=== PATIENT | female | born 1955 | race Hispanic/Latino ===

== ENCOUNTER → 2017-07-04 | Outpatient (CLI) | payer OTHER ==
[~2017-07-04] MED LIST: DOXY100T2 PO
== END | disposition home or self-care (01) ==
LOC: RAH 11:57
PROVIDERS: ATTEND Nurse Practitioner Family
DX: H81.399 Other peripheral vertigo, unspecified ear (principal); R51 Headache
CPT/HCPCS: 93880

== ENCOUNTER 2021-09-26 12:36 | Observation (INO) | payer OTHER ==
[~2021-09-26] VITALS: Ht 144.8 cm; Wt 56.0 kg
[2021-09-26 13:06] LABS: APPEARANCE,URINE CLEAR (CLEAR); BILIRUBIN,URINE NEGATIVE (NEGATIVE); COLOR,URINE YELLOW (YELLOW); GLUCOSE, URINE (UA) NEGATIVE (NEGATIVE); KETONES,URINE NEGATIVE (NEGATIVE); LEUKOCYTE ESTERASE ,URINE NEGATIVE (NEGATIVE); NITRATE,URINE NEGATIVE (NEGATIVE); OCCULT BLOOD,URINE NEGATIVE (NEGATIVE); PH,URINE 6.5 (5.0-8.0); PROTEIN,URINE NEGATIVE (NEGATIVE); UROBILINOGEN,URINE 0.2 mg/dL (0.2-1.0)
[2021-09-26 13:17] LABS: BASOPHILS % (AUTO) 0.4 % (0.0-5.0); EOSINOPHILS % (AUTO) 0.2 % (0.0-8.0); HEMATOCRIT 41.4 % (36-48); LYMPHOCYTES % (AUTO) 23.2 % (21.0-51.0); MEAN CORPUSCULAR HEMOGLOBIN 28.6 pg (27.0-33.0); MEAN CORPUSCULAR HGB CONC 33.3 g/dL (32.0-36.0); MEAN CORPUSCULAR VOLUME 85.7 fL (79-99); MONOCYTES % (AUTO) 6.4 % (3.0-13.0); NEUTROPHILS % (AUTO) 69.6 % (40.0-77.0); PLATELET COUNT (AUTO) 239 K/uL (130-400); RED BLOOD CELL COUNT(AUTO) 4.83 MIL/uL (4.00-5.50); RED CELL DISTRIBUTION WIDTH 14.4 % (11.0-15.5); WHITE BLOOD COUNT (AUTO) 5.2 K/uL (4.8-10.8)
[2021-09-26 14:19] LABS: ALBUMIN 3.9 g/dL (3.5-5.0); CREATININE 0.7 mg/dL (0.5-1.5); POTASSIUM 3.6 mmol/L (3.5-5.1); TOTAL PROTEIN, SERUM 7.6 g/dL (6.0-8.3)
[2021-09-26] MEDS ORDERED: 0.9%NACL 1000ML 1,000 ML IV ONE (14:30)
[2021-09-26] MEDS ORDERED: ONDANSETRON 4MG INJ IVP ONE (14:30)
[2021-09-26] MEDS ORDERED: MORPHINE 4 MG SYG IVP ONE (14:30)
[2021-09-26] MEDS ORDERED: IOHEXOL 350 MG/ML 100ML INFUS..BTL IV ONE (14:48)
[2021-09-26] MEDS ORDERED: DIATR MEGLU/DIATRIZOATE SODIUM 30 ML BOTTLE ONE (17:57)
[2021-09-26] MEDS ORDERED: MORPHINE 2 MG SYG IV PRN (19:00)
[2021-09-26] MEDS ORDERED: MORPHINE 4 MG SYG IV PRN (19:00)
[2021-09-26] MEDS ORDERED: ACETAMINOPHEN 650 MG SUPPOSITORY RC PRN (19:00)
[2021-09-26] MEDS: LACTATED RINGERS 1000ML 1,000 ML IV SCH (19:00)
[2021-09-26] MEDS: ZOSYN 3.375GM+NS 50ML 50 ML IV SCH (21:50)
[2021-09-26] MEDS: FAMOTIDINE 20MG VIAL IV SCH (21:50)
[2021-09-26 22:30] VITALS: BP 116/55
[2021-09-27 04:00] VITALS: BP 122/57
[2021-09-27] MEDS: LACTATED RINGERS 1000ML 1,000 ML IV SCH (04:58)
[2021-09-27] MEDS: ZOSYN 3.375GM+NS 50ML 50 ML IV SCH (05:40)
[2021-09-27 05:46] LABS: BASOPHILS % (AUTO) 0.5 % (0.0-5.0); EOSINOPHILS % (AUTO) 1.2 % (0.0-8.0); HEMATOCRIT 36.3 % (36-48); LYMPHOCYTES % (AUTO) 35.7 % (21.0-51.0); MEAN CORPUSCULAR HEMOGLOBIN 28.5 pg (27.0-33.0); MEAN CORPUSCULAR HGB CONC 33.3 g/dL (32.0-36.0); MEAN CORPUSCULAR VOLUME 85.4 fL (79-99); MONOCYTES % (AUTO) 10.5 % (3.0-13.0); NEUTROPHILS % (AUTO) 51.9 % (40.0-77.0); PLATELET COUNT (AUTO) 187 K/uL (130-400); RED BLOOD CELL COUNT(AUTO) 4.25 MIL/uL (4.00-5.50); RED CELL DISTRIBUTION WIDTH 14.4 % (11.0-15.5)
[2021-09-27 05:50] LABS: INR 0.98 (0.85-1.15); PROTHROMBIN TIME 10.7 SEC (9.6-11.6)
[2021-09-27 05:51] LABS: PARTIAL THROMBOPLASTIN TIME 28.7 SEC (26.3-35.5)
[2021-09-27 06:12] LABS: CREATININE 0.8 mg/dL (0.5-1.5); MAGNESIUM 2.2 mg/dL (1.80-2.40); PHOSPHORUS 4.6 mg/dL (2.5-4.9); POTASSIUM 3.8 mmol/L (3.5-5.1)
[2021-09-27 07:25] VITALS: BP 110/50
[2021-09-27] MEDS: FAMOTIDINE 20MG VIAL IV SCH (09:34)
[2021-09-27 11:05] VITALS: BP 100/47
[2021-09-27] MEDS ORDERED: LEVO-70 PO (11:50)
[2021-09-27] MEDS ORDERED: METR-172 PO (11:50)
== END 2021-09-27 13:03 | disposition home or self-care (01) ==
LOC: EDH 12:36 → EDHIP 18:46 → INTOOBSV 18:46 → 4DH 22:25
PROVIDERS: ADMIT Internal Medicine; ATTEND Internal Medicine
DX: R10.31 Right lower quadrant pain (principal); K57.90 Diverticulosis of intestine, part unspecified, without perforation or abscess without bleeding; Z90.49 Acquired absence of other specified parts of digestive tract
CPT/HCPCS: 96361 ×2; 96365; 96366 ×2; 96375 ×2; 99285; 84484; 80053; 83690; 85025 ×2; 87040 ×2; 81003; 36415 ×2; 74176; 74177; 93005; 83735; 84100; 80048; 85610; 85730; 86850; 86900; 86901; J7120; Q9963; J3490 ×2; J7030; J2405; J2270; J2543 ×2; Q9967; G0378 ×2

== ENCOUNTER 2022-04-24 03:31 | Emergency (ER) | payer BC, MEDICARE, OTHER ==
[~2022-04-24] VITALS: Ht 147.3 cm; Wt 57.6 kg
[~2022-04-24 03:31] MED LIST changes: -DOXY100T2 PO; +LEVO-70 PO; +METR-172 PO
[2022-04-24 03:54] LABS: APPEARANCE,URINE CLEAR (CLEAR); BILIRUBIN,URINE NEGATIVE (NEGATIVE); COLOR,URINE COLORLESS (YELLOW); GLUCOSE, URINE (UA) NEGATIVE (NEGATIVE); KETONES,URINE NEGATIVE (NEGATIVE); LEUKOCYTE ESTERASE ,URINE NEGATIVE Leu/uL (NEGATIVE); NITRATE,URINE NEGATIVE (NEGATIVE); OCCULT BLOOD,URINE NEGATIVE (NEGATIVE); PROTEIN,URINE NEGATIVE (NEGATIVE); UROBILINOGEN,URINE 0.2 mg/dL (0.2-1.0)
[2022-04-24 03:56] LABS: BASOPHILS % (AUTO) 0.5 % (0.0-5.0); EOSINOPHILS % (AUTO) 2.2 % (0.0-8.0); HEMATOCRIT 41.9 % (36-48); LYMPHOCYTES % (AUTO) 32.3 % (21.0-51.0); MEAN CORPUSCULAR HEMOGLOBIN 28.5 pg (27.0-33.0); MEAN CORPUSCULAR HGB CONC 32.9 g/dL (32.0-36.0); MEAN CORPUSCULAR VOLUME 86.4 fL (79-99); MONOCYTES % (AUTO) 8.1 % (3.0-13.0); NEUTROPHILS % (AUTO) 56.7 % (40.0-77.0); PLATELET COUNT (AUTO) 209 K/uL (130-400); RED BLOOD CELL COUNT(AUTO) 4.85 MIL/uL (4.00-5.50); RED CELL DISTRIBUTION WIDTH 14.6 % (11.0-15.5); WHITE BLOOD COUNT (AUTO) 5.6 K/uL (4.8-10.8)
[2022-04-24 04:06] LABS: CREATININE 0.7 mg/dL (0.5-1.5); POTASSIUM 3.9 mmol/L (3.5-5.1)
[2022-04-24 04:10] LABS: ALBUMIN 3.8 g/dL (3.5-5.0); TOTAL PROTEIN, SERUM 7.2 g/dL (6.0-8.3)
[2022-04-24 05:01] VITALS: BP 125/66
[2022-04-24] MEDS ORDERED: PANTOPRAZOLE 40 MG/VIAL IVP STA (05:59)
[2022-04-24] MEDS ORDERED: PANTOPRAZOLE 40 MG/VIAL ONE (06:01)
[2022-04-24] MEDS ORDERED: PANT40TA55 PO (06:01)
== END 2022-04-24 06:10 | disposition home or self-care (01) ==
LOC: EDH 03:31
DX: K29.70 Gastritis, unspecified, without bleeding (principal); Z79.899 Other long term (current) drug therapy; Z90.49 Acquired absence of other specified parts of digestive tract
CPT/HCPCS: 99284; 96374; 80053; 83690; 85025; 81003; 36415; C9113

== ENCOUNTER 2023-08-12 23:32 | Emergency (ER) | payer MEDICARE ==
[~2023-08-12] VITALS: Ht 144.8 cm; Wt 60.3 kg
[~2023-08-12 23:32] MED LIST changes: +PANT40TA55 PO
[2023-08-12] MEDS: ACETAMINOPHEN 325 MG TAB PO ONE (23:53)
[2023-08-12 23:58] LABS: RAPID GROUP A STREP negative (NEGATIVE)
[2023-08-13 00:02] LABS: SARS-CoV-2, RNA, NAAT NEGATIVE SARS CoV-2 (NEGATIVE)
[2023-08-13 00:07] LABS: INFLUENZA TYPE A Negative For Type A (NEGATIVE); INFLUENZA TYPE B Negative For Type B (NEGATIVE)
[2023-08-13 00:15] LABS: ADD UA MICROSCOPIC YES; APPEARANCE,URINE CLEAR (CLEAR); BILIRUBIN,URINE NEGATIVE (NEGATIVE); COLOR,URINE COLORLESS (YELLOW); GLUCOSE, URINE (UA) NEGATIVE (NEGATIVE); KETONES,URINE NEGATIVE (NEGATIVE); LEUKOCYTE ESTERASE ,URINE NEGATIVE Leu/uL (NEGATIVE); NITRATE,URINE NEGATIVE (NEGATIVE); PH,URINE 6.5 (5.0-8.0); PROTEIN,URINE NEGATIVE (NEGATIVE); UROBILINOGEN,URINE 0.2 mg/dL (0.2-1.0)
[2023-08-13 00:20] LABS: WBC,URINE 0-1 /HPF (0-1)
[2023-08-13 00:21] LABS: BACTERIA,URINE None Seen /HPF (None Seen); MUCUS,URINE Rare LPF (None Seen)
[2023-08-13 00:29] LABS: CREATININE 0.7 mg/dL (0.5-1.0); POTASSIUM 4.8 mmol/L (3.5-5.1)
[2023-08-13 00:33] LABS: ALBUMIN 3.5 g/dL (3.5-5.0); BILIRUBIN,TOTAL 0.3 mg/dL (0.2-1.0); TOTAL PROTEIN, SERUM 7.4 g/dL (6.0-8.3)
[2023-08-13 00:35] LABS: BASOPHILS # (AUTO) 0.03 K/uL (0.00-0.20); BASOPHILS % (AUTO) 0.4 % (0.0-5.0); EOSINOPHILS # (AUTO) 0.02 K/uL (0.00-0.70); EOSINOPHILS % (AUTO) 0.3 % (0.0-8.0); HEMATOCRIT 39.2 % (36-48); IMMATURE GRANULOCYTE ABSOLUTE 0.02 K/uL (0-1); LYMPHOCYTES # (AUTO) 0.7 K/uL (1.0-4.8); MEAN CORPUSCULAR HEMOGLOBIN 28.7 pg (27.0-33.0); MEAN CORPUSCULAR HGB CONC 33.2 g/dL (32.0-36.0); MEAN CORPUSCULAR VOLUME 86.5 fL (79-99); MONOCYTES # (AUTO) 0.6 K/uL (0.1-1.0); MONOCYTES % (AUTO) 8.2 % (3.0-13.0); NEUTROPHILS # (AUTO) 5.4 K/uL (1.8-7.7); NEUTROPHILS % (AUTO) 80.8 % (40.0-77.0); PLATELET COUNT (AUTO) 214 K/uL (130-400); RED BLOOD CELL COUNT(AUTO) 4.53 MIL/uL (4.00-5.50); RED CELL DISTRIBUTION WIDTH 14.6 % (11.0-15.5); WHITE BLOOD COUNT (AUTO) 6.7 K/uL (4.8-10.8)
[2023-08-13 01:07] VITALS: BP 105/53; PULSE 89; RESP 20; O2SAT 100
[2023-08-13 01:39] VITALS: TEMP 99
== END 2023-08-13 01:54 | disposition home or self-care (01) ==
LOC: EDH 23:32
DX: R50.9 Fever, unspecified (principal); B34.9 Viral infection, unspecified; Z20.822 Contact with and (suspected) exposure to COVID-19
CPT/HCPCS: 36415; 80053; 81001; 85025; 87635; 87804; 87880